=== PATIENT | female | born 1955 | race Caucasian/White ===

== ENCOUNTER 2025-04-17 08:39 | Outpatient (AMB) | payer MEDICARE, BC, SELFPAY ==
[2025-04-17 08:41] VITALS: BP 120/73; TEMP 36.3; BMI 26.7
--- NOTE | 2025-04-17 08:41 | A.PHYSOV_ITS ---
Vital Signs 04/17/25 08:41 Height 5 ft 3 in Weight 151 lb BMI 26.7 BP 120/73 Temp 97.3 F Intake Visit Reasons: Right Sacroiliac Joint Injection Intake Note: Patient is a 69 year old female in office today for Right Sacroiliac Injection Allergies amoxicillin Allergy (Unknown, Verified 04/17/25 08:40) Unknown aspirin Allergy (Unknown, Verified 04/17/25 08:40) Unknown codeine Allergy (Unknown, Verified 04/17/25 08:40) Unknown iodine Allergy (Unknown, Verified 04/17/25 08:40) Unknown nitrofurantoin (From Macrodantin) Allergy (Unknown, Verified 04/17/25 08:40) Unknown Penicillins Allergy (Unknown, Verified 04/17/25 08:40) Unknown promethazine Allergy (Unknown, Verified 04/17/25 08:40) Unknown Sulfa (Sulfonamide Antibiotics) Allergy (Unknown, Verified 04/17/25 08:40) Unknown [facility] Medical History (Updated 04/17/25 @ 09:06 by Jesus Rodriguez DO) Sacroiliac inflammation Surgical History (Updated 04/13/25 @ 16:11 by Kanchan Chen MA) History of shoulder surgery (Unknown) History of delivery (Unknown) Social History (Updated 04/13/25 @ 16:11 by Kanchan Chen MA) Alcohol intake: current Alcohol intake frequency: holidays/special occasions only Physical Exam Vital Signs: Last Vital Signs Temp 97.3 F 04/17/25 08:41 BP 120/73 04/17/25 08:41 BMI result Body Mass Index 26.7 Office Procedures AMB Sacroiliac Joint Injection AMB Sacroiliac Joint Injection Procedure Details: Preop diagnosis: SI joint mediated pain, sacroiliitis Postop diagnosis: The same After informed consent was obtained patient was brought into the procedure room and placed in prone position on the procedure table. Skin over lumbar sacral area was prepped and draped in the usual sterile manner. The inferior portion of the right sacroiliac joint was visualized utilizing fluoroscopy. 3.5 in 22 gauge spinal needle was introduced percutaneously and advanced into the joint. Needle placement was verified utilizing 0.5 cc of Omnipaque contrast solution. 2.5 cc of therapeutic solution containing 40 mg of triamcinolone and 2% lidocaine was injected after negative aspiration for blood. The C-arm was obliqued about 30? in the contralateral direction an area just medial the proximal portion of the sacroiliac joint was visualized. 3.5 in 22 gauge spinal needle was introduced percutaneously and advanced to enter the area. Once in place, needle placement was identified utilizing 1 cc of Omnipaque contrast solution. Total volume of 2.5 cc containing 40 mg of triamcinolone and 2% lidocaine was injected to block the lateral branches at the sacroiliac ligament. Radiation exposure was documented in the chart. Sacroiliac Joint Injections [id number] - use with FL Gd order: Right All charges added?: Procedure code (CPT) selection complete Office Meds Kenalog 40 mg/mL suspension for injection Performing Provider: Jesus Rodriguez DO Performing Location: [facility] Administered by: Jesus Rodriguez DO on 04/17/25 08:43 Dose Route Admin Location Dispensed Lot Number Expiration Date [facility] [employer] 80 mg intra-articular 2 mL [id number] [facility] Total Dispensed Waste 2 mL 0 % lidocaine (PF) 20 mg/mL (2 %) injection solution Performing Provider: Jesus Rodriguez DO Performing Location: [facility] Administered by: Jesus Rodriguez DO on 04/17/25 08:43 Dose Route Admin Location Dispensed Lot Number Expiration Date [facility] [employer] 120 mg intra-articular 10 mL [id number] [facility] Total Dispensed Waste 10 mL 40 % Omnipaque 300 300 mg iodine/mL intravenous solution Performing Provider: Jesus Rodriguez DO Performing Location: [facility] Administered by: Jesus Rodriguez DO on 04/17/25 08:43 Dose Route Admin Location Dispensed Lot Number Expiration Date [facility] Community [employer]anner 3 mL intra-articular 10 mL [id number] [employer] Total Dispensed Waste 10 mL 70 % Assessment & Plan Assessment & Plan (1) Sacroiliac dysfunction: Comment: Right SI joint injection was done, postprocedural course was complicated by transient leg numbness which improved by the time patient left the office. Code(s): M53.3 - Sacrococcygeal disorders, not elsewhere classified Category: Medical (2) Sacroiliac inflammation: Code(s): M46.1 - Sacroiliitis, not elsewhere classified Category: Medical Plan Right SI joint injection was completed Orders: Orders FL Guided Sacroiliac Jt Inj RT Today M46.1 - Sacroiliitis, not elsewhere classified, M53.3 - Sacrococcygeal disorders, not elsewhere classified AMB Sacroiliac Joint Injection Today M46.1 - Sacroiliitis, not elsewhere classified, M53.3 - Sacrococcygeal disorders, not elsewhere classified Coding Level of Care Code Procedure Only Diagnoses Sacroiliac dysfunction M53.3 Sacroiliac inflammation M46.1 CPT Codes AMB Sacroiliac Joint Injection - Hip intraarticular Injection - : Right ([id number])
--- OUTSIDE RECORDS SUMMARY | 2025-04-17 08:54 | XMS_ITS | Encounter Summary ---
Author Organization [facility] Address [address] [place] [id number] Phone Care Team Providers Care Access Services Assistant Name Role Phone Unknown, Unknown Primary Care Provider Lakhwinder Harrison MD Primary Care Provider [phone] Encounter Details Date Type Department Care Team (Late st Contact Info) Description 05/10/2018 Procedure Pass [facility] Endoscopy Admitting Dept Virtual Department [address] [place] [address] Social History Tobacco Use Types Packs/Day Years Used Date Smoking Tobacco: Never Smokeless Tobacco: Never Alcohol Use Standard Drinks/Week Comments Yes 0 (1 standard drink = 0.6 oz pur e alcohol) 1-3 drinks per week Comments Unknown Sex and Gender Information Value Date Recorded Sex Assigned at Not on file Legal Sex Female 9:27 AM EDT Gender Identity Not on file Sexual Orientation Not on file documented as of this encounter Plan of Treatment Not on file documented as of this encounter Visit Diagnoses Not on filedocumented in this encounter Care Teams Access Services Assistant Relationship Specialty Start Date End Date Unknown, Unknown, PCP - General 05/15/18 09/17/22 Lakhwinder Rodriguez MD [address] [place] [address] PCP - General Family Medicine 09/18/22 documented as of this encounter Additional Source Comments The information contained in this document represents components of the legal health record. It is not the complete legal health record.[facility]
--- OUTSIDE RECORDS SUMMARY | 2025-04-17 08:54 | XMS_ITS | Clinical Summary ---
Author Organization [facility] Address [address] [place] [address] Care Team Providers Care Grey Stock Recorder Name Role Phone Joaquín Galloway MD Primary Care Provider [phone] Allergies Active Allergy Reactions Criticality Noted Date Comments Betadine(With Soap) 02/15/2021 Nitrofurantoin Monohyd/M-Cryst 02/15/2021 Nsaids (Non-Steroidal Anti-Inflammatory Drug) Other (see comments) 05/16/2023 Bruises easily Opioids-Meperidine And Related 06/17/2024 Penicillins Hives,Rash High 05/10/2018 Swelling difficulty breathing Sob, rash Sulfa (Sulfonamide Antibiotics) Dermatitis,Other (see comments),Rash,Unkn own Medium 05/10/2018 Skin peeling Medications gabapentin (NEURONTIN) 400 mg capsule Take 1,200 mg by mouth nightly. 05/29/2024 Active olmesartan medoxomil (OLMESARTAN ORAL) Take 10 mg by mouth once. 05/29/2024 Active rosuvastatin calcium (ROSUVASTATIN ORAL) Take 10 mg by mouth in the morning. 05/29/2024 Active SUMAtriptan (IMITREX) 100 mg tablet Take 1 tablet by mouth See admin instructions. PRN 06/04/2003 Active estradioL (ESTRACE) 0.01 % (0.1 mg/gram) vaginal cream Insert 2 g into the vagina 2 (two) times a week. 05/26/2024 Active buPROPion XL (WELLBUTRIN XL) 150 mg 24 hr tablet Take 150 mg by mouth in the morning and 150 mg before bedtime. 11/03/1999 Active bisoprolol/hydr ochlorothiazide (ZIAC ORAL) 11/02/1994 Active ALPRAZolam (XANAX) 0.5 mg tablet Take 0.5 mg by mouth daily as needed. Active propranoloL (INDERAL) 10 mg tablet Take 10 mg by mouth in the morning and 10 mg before bedtime. PRN. Active fluconazole (DIFLUCAN) 150 mg tablet Take 150 mg by mouth in the morning. PRN. 01/08/2024 Active acetaminophen (Tylenol Extra Strength) 500 mg tablet Take 2 tablets (1,000 mg total) by mouth every 6 (six) hours as needed for mild pain (1-3). 30 tablet 12/11/2024 Active oxyCODONE (ROXICODONE) 5 mg immediate release tablet Take 1 tablet (5 mg total) by mouth every 4 (four) hours as needed for moderate pain (4-7) for up to 10 doses. Max Daily Amount: 30 mg 10 tablet 12/11/2024 Active Active Problems Problem Noted Date Diagnosed Date OLEKSANDR (stress urinary incontinence, female) 2024 Encounters Date Type Department Care Team Description 01/22/2025 9:45 AM EDT Follow-Up [facility] Department of Obstetrics and Gynecology [address] [place] [id number] Iliana Tolentino APRN Postoperative follow-up (Primary Dx) from Last 3 Months Social History Tobacco Use Types Packs/Day Years Used Date Smoking Tobacco: Never Smokeless Tobacco: Never Tobacco Cessation:Counseling Given: Not Answered Alcohol Use Standard Drinks/Week Comments Yes 0 (1 standard drink = 0.6 oz pur e alcohol) occas Comments No Sex and Gender Information Value Date Recorded Sex Assigned at Not on file Legal Sex Female 12:39 AM EST Gender Identity Not on file Sexual Orientation Not on file Last Filed Vital Signs Vital Sign Reading Time Taken Comments Blood Pressure 117/58 01/22/2025 10:17 AM EDT Pulse 63 01/22/2025 10:17 AM EDT Temperature 36.4 C (97.6 F) 12/26/2024 12:02 PM EDT Respiratory Rate 16 12/26/2024 12:0 2 PM EDT Oxygen Saturation 98% 12/11/2024 10: 15 AM EDT Inhaled Oxygen Concentration - - Weight 69.4 kg (152 lb 14.4 oz) 025 10:17 AM EDT Height 162.6 cm (5' 4.02 ) 01/22/2025 1 0:17 AM EDT Body Mass Index 26.23 01/22/2025 10:17 AM EDT Plan of Treatment Health Maintenance Due Date Last Done Comments Bone Density Screening 1955 Breast Cancer Screening 1955 CT Colonography 1955 FIT-DNA (Cologuard) 1955 FIT 1955 FOBT 1955 Flex Sigmoidoscopy - 5y 1955 HIV Screening 1955 Medicare Annual Wellness (AWV) 1955 Hepatitis C Screening 1973 Pneumococcal Vaccine, 50+ Years (2 of 2 - PCV) 11/05/2021 11/05/2020 COVID-19 Vaccine (5 - season) 2025 12/12/2021, 03/29/2021, 08/21/2020, Additional history exists Influenza Vaccine (#1) 2025 , 01/25/2021, 06/05/2017 DTaP,Tdap,and Td Vaccines (2 - Tdap) 10/02/2028 10/02/2018 Colonoscopy 09/18/2032 09/18/2022 Colorectal Cancer Screening 09/18/2032 Zoster Vaccines Completed 10/15/2020, 06/25/2020 HPV Vaccines Aged Out No longer eligi ble based on patient's age to complete this topic Hepatitis A Vaccines Aged Out No long er eligible based on patient's age to complete this topic Meningococcal Vaccine Aged Out No brent meng eligible based on patient's age to complete this topic Medical Devices Implanted Type Area Improvement Advisor Device Identifier Shelf Expiration Date Model / Serial / Lot Tvt Exact Retropubic System - [id number] Implanted:Qty: 1 on 12/11/2024 by Willy Silva MD at [facility] Surgical Implants - Men & Women's Pelvic Health N/A: Vagina Gynecare, div of [employer], Meet & Meet 06/03/2025 TVTRL / / [id number] Insurance MEDICARE PART A & B [facility] - OUT OF STATE Care Teams Grey Stock Recorder Relationship Specialty Start Date End Date Joaquín Galloway MD [address] [facility] [address] [place] [phone] PCP - General Family Medicine 12/11/24
--- OUTSIDE RECORDS SUMMARY | 2025-04-17 08:54 | XMS_ITS | Clinical Summary ---
Author Organization [facility] Address [address] [place] [address] Care Team Providers Care Ramp Flight Attendant Name Role Phone Unknown, Primary Care Provider Unavailabl e Social History Tobacco Use Types Packs/Day Years Used Date Smoking Tobacco: Never Assessed Sex and Gender Information Value Date Recorded Sex Assigned at Not on file Gender Identity Not on file Sexual Orientation Not on file Job Start Date Occupation Industry Not on file Not on file Not on file Plan of Treatment Health Maintenance Due Date Last Done Comments Hepatitis C Screening 1955 COVID-19 Vaccine (#1) 1955 Depression Screening 1967 Preventative Health Evaluation 1973 Colon Cancer Screening (Colonoscopy) 2000 Breast Cancer Screening (Mammogram) 2005 Fall Risk Assessment 2020 Osteoporosis Screening (DEXA Scan) 2020 Pneumococcal Vaccine (1 of 1 - PCV) 2020 Influenza Vaccine (#1) 2025 DTap / Tdap / Td (2 - Tdap) 10/02/2028 10/02/2018 RSV Adult > 60+ Yrs or (1 - 1-dose 75+ series) 2030 Shingrix-Zoster Vaccine Completed 10/16/19 21, 06/25/2020 Hepatitis B Vaccines Aged Out No long er eligible based on patient's age to complete this topic RSV Ped < 20 months Aged Out No longe r eligible based on patient's age to complete this topic Care Teams Ramp Flight Attendant Relationship Specialty Start Date End Date Unknown, PCP - General 12/27/23
--- OUTSIDE RECORDS SUMMARY | 2025-04-17 08:54 | XMS_ITS | Encounter Summary ---
Author Organization [facility] Address [address] [address] Phone Care Team Providers Care Supervisor Vacuum Metalizing Name Role Phone Lakhwinder Rodriguez MD Primary Care Provider [phone] Encounter Details Date Type Department Care Team (Late st Contact Info) Description 09/18/2022 Procedure Pass [facility] Endoscopy Admitting Dept Virtual Department [address] [place] [address] Social History Tobacco Use Types Packs/Day Years Used Date Smoking Tobacco: Never Smokeless Tobacco: Never Alcohol Use Standard Drinks/Week Comments Yes 1 (1 standard drink = 0.6 oz pur e alcohol) 1-2 per week Comments No Sex and Gender Information Value Date Recorded Sex Assigned at Not on file Legal Sex Female 9:27 AM EDT Gender Identity Not on file Sexual Orientation Not on file documented as of this encounter Plan of Treatment Not on file documented as of this encounter Visit Diagnoses Not on filedocumented in this encounter Care Teams Supervisor Vacuum Metalizing Relationship Specialty Start Date End Date Lakhwinder Rodriguez MD [address] [place] [address] [address] [place] [address] PCP - General Family Medicine 09/18/22 documented as of this encounter Additional Source Comments The information contained in this document represents components of the legal health record. It is not the complete legal health record.[facility]
--- OUTSIDE RECORDS SUMMARY | 2025-04-17 08:54 | XMS_ITS | Clinical Summary ---
Author Organization [facility] Address [address] [place] [address] Care Team Providers Care Stick Welder Name Role Phone Queenie Sanders MD Primary Care Pr ovider Allergies Active Allergy Reactions Criticality Noted Date Comments Amoxicillin 05/31/2024 Nitrofurantoin Unknown 03/27/2022 Nsaids (Non-Steroidal Anti-I nflammatory Drug) 07/18/2021 Penicillins 07/18/2021 Povidone-Iodine Unknown 07/18/2021 Promethazine Unknown 07/18/2021 Sulfa (Sulfonamide Antibiotics) Unknown 03/05 Medications atorvastatin (LIPITOR) 10 mg tablet Take 1 tablet (10 mg total) by mouth 1 (one) time each day. 2 Active bisoprolol-hydroCHL OROthiazide (ZIAC) 5-6.25 mg per tablet Take 1 tablet by mouth 1 (one) time each day. 2 Active buPROPion XL (WELLBUTRIN XL) 300 mg 24 hr tablet Take 1 tablet (300 mg total) by mouth 1 (one) time each day in the morning. Active ondansetron ODT (ZOFRAN-ODT) 4 mg disintegrating tablet Take 1 tablet (4 mg total) by mouth every 8 (eight) hours if needed. 2 Active famotidine (PEPCID) 20 mg tablet Take 1 tablet (20 mg total) by mouth 2 (two) times a day. 2 Active gabapentin (NEURONTIN) 400 mg capsule Take 3 capsules (1,200 mg total) by mouth 1 (one) time each day. Take 3 capsules at bedtime 2 Active SUMAtriptan (IMITREX) 25 mg tablet Sig: May repeat dose once after 2 hours, if needed. 2 Active propranoloL (INDERAL) 10 mg tablet Take 1 tablet (10 mg total) by mouth 1 (one) time each day if needed. For PAC 2 Active Active Problems Problem Noted Date Diagnosed Date Arrhythmia 11/17/2021 Degenerative disc disease, cervical 07/18/2021 Degenerative disc disease, lumbar 07/18/2021 Dyslipidemia 07/18/2021 Major depressive disorder in partial remission ([facility] V24) 07/18/2021 Migraine without aura and wi thout status migrainosus, not intractable 07/18/2021 PAC (premature atrial contraction) 07/18/2021 Primary hypertension 07/18/2021 Von Willebrand disease ([facility] V24, [facility] V28 ) 07/18/2021 Immunizations Immunization Administration Dates Next Due DTaP (Infanrix) 6wks to less than 7yo 10/02/2018 Influenza, Unspecified 01/25/2022,01/25/2021 Moderna SARS-CoV-2 COVID-19, mRNA, LNP-S, preservative free 12/12/2021,03/29/2021,08/21/2020,08/03 Pneumococcal polysaccharide 23 valent (Pneumovax 23) 2yo and older 11/05/2020 Zoster recombinant (Shingrix ) 19yo and older 10/15/2020,06/25/2020 Surgical History Surgery Date Site/Laterality Comments OTHER SURGICAL HISTORY Right PROCEDURE: ARTHROSCOPY SHOULDER SURGI SECTION 1987 PROCEDURE: [place] DELIVERY ONLY COLONOSCOPY 07/2017 PROCEDURE: HISTORICAL COLONOSCOPY Medical History Medical History Date Comments Essential hypertension DX:Essent ial hypertension Depressive disorder DX:Depressiv e disorder Migraine DX:Migraine Von Willebrand disease ([facility] V24, [facility] V28) DX:Von Willebrand disease (H CC) Neuropathy DX:Neuropathy; C OMMENT: Left hand Hyperlipidemia DX:Hyperlipidemi a Family History Medical History Relation Name Comments CABG Father Parkinson's Disease Father Breast cancer Mother Relation Name Status Comments Brother 1 Alive Brother 2 Alive Daughter Alive Father Mother Son 1 Alive Son 2 Alive Social History Tobacco Use Types Packs/Day Years Used Date Smoking Tobacco: Never Smokeless Tobacco: Never Alcohol Use Standard Drinks/Week Comments Yes 2 (1 standard drink = 0.6 oz pur e alcohol) Comments Unknown Sex and Gender Information Value Date Recorded Sex Assigned at Not on file Legal Sex Female 11:59 PM EST Gender Identity Not on file Sexual Orientation Not on file Obstetrics History Last Filed Vital Signs Vital Sign Reading Time Taken Comments Blood Pressure 90/50 01/25/2022 2:31 PM EDT Pulse 59 03/31/2022 2:33 PM EDT Temperature - - Respiratory Rate - - Oxygen Saturation - - Inhaled Oxygen Concentration - - Weight 67.1 kg (148 lb) 03/31/2022 2:33 PM EDT Height 162.6 cm (5' 4 ) 03/31/2022 2:33 PM EDT Body Mass Index 25.4 03/31/2022 2:33 PM EDT Plan of Treatment Health Maintenance Due Date Last Done Comments Breast Cancer Screening 1955 Colorectal Cancer Screening: Colonoscopy 1955 Pneumococcal Vaccine: 50+ Years (2 of 2 - PCV) 11/05/2021 11/05/2020 Falls Risk Assessment 05/13/2022 Osteoporosis Screening (Bone Density Screening) 05/13/2022 Social Influencers of Health Screening 05/13/2022 Hypertension/CHF/CAD Annual BMP Blood Test 03/31/2023 03/31/2022 Depression Screening 06/04/2024 COVID-19 Vaccine ( season) 2025 12/12/2021, 03/29/2021, 08/21/2020, Additional history exists Influenza Vaccine (#1) 2025 01/25/2022, 2020 Cholesterol Screening (Lipid Panel) 01/25/2027 01/25/2022 DTaP,Tdap,and Td Vaccines (2 - Tdap) 10/02/2028 10/02/2018 RSV Immunization Adult Patients (1 - 1-dose 75+ series) 2030 Zoster Vaccines Completed 10/15/2020, 06/25/2020 Hepatitis C Screening Completed 01/25/2022 HIB Vaccines Aged Out No longer eligi ble based on patient's age to complete this topic HPV Vaccines Aged Out No longer eligi ble based on patient's age to complete this topic Hepatitis A Vaccines Aged Out No long er eligible based on patient's age to complete this topic Hepatitis B Vaccines Aged Out No long er eligible based on patient's age to complete this topic IPV Vaccines Aged Out No longer eligi ble based on patient's age to complete this topic MMR Vaccines Aged Out No longer eligi ble based on patient's age to complete this topic Meningococcal ACWY Vaccine Aged Out N o longer eligible based on patient's age to complete this topic Meningococcal B Vaccine Aged Out No l onger eligible based on patient's age to complete this topic RSV Immunization Patients Under 20 months Aged Out No longer eligible based on patient's age to complete this topic Varicella Vaccines Aged Out No longer eligible based on patient's age to complete this topic Procedures Procedure Name Priority Date/Time Associated Diagnosis Comments ANNUAL BMP BLOOD TEST Routine 03/31/2022 HEPATITIS C SCREENING Routine 01/25/2022 LIPID PANEL Routine 01/25/2022 from Last 3 Months or Most Recently Relevant to Health Maintenance Results * Annual BMP Blood Test (03/31/2022) Pathologist [facility] Annual BMP Blood Test abstracted [facility] Provider HEALTH MAINTENANCE Final Result * Hepatitis C Screening (01/25/2022) Pathologist [facility] Hepatitis C Screening abstracted [facility] Provider HEALTH MAINTENANCE Final Result * (ABNORMAL) Lipid panel (01/25/2022) [facility] LDL/HDL Ratio 3 0 - 4 Triglycerides 149 0 - 150 mg/dL Cholesterol 209(A) 0 - 200 mg/dL HDL 69 >=40 mg/dL LDL Cholesterol 111(A) 0 - 100 mg/dL Blood Venous blood specimen / Unknown [facility] Provider LAB BLOOD ORDERABLES Lindsay l Result from Last 3 Months or Most Recently Relevant to Health Maintenance Care Teams Stick Welder Relationship Specialty Start Date End Date Queenie Sanders MD [address] [place] [address] PCP - General Internal Medicine 11/25/21
--- OUTSIDE RECORDS SUMMARY | 2025-04-17 08:55 | XMS_ITS | Clinical Summary ---
Author Organization [facility] Address [address] [place] [address] Care Team Providers Care Monotyper Name Role Phone Maribel Kelley NP Primary Care Provider Allergies Active Allergy Reactions Criticality Noted Date Comments Betadine(With Soap) 02/15/2021 Nitrofurantoin Monohyd/M-Cryst 02/15 Nsaids (Non-Steroidal Anti-I nflammatory Drug) 02/15/2021 Penicillin 02/15/2021 Promethazine 02/15/2021 Sulfa (Sulfonamide Antibiotics) 02/02 Medications No known medications Social History Tobacco Use Types Packs/Day Years Used Date Smoking Tobacco: Never Assessed Comments Unknown Sex and Gender Information Value Date Recorded Sex Assigned at Not on file Legal Sex Female 9:52 AM EDT Gender Identity Not on file Sexual Orientation Not on file Last Filed Vital Signs Vital Sign Reading Time Taken Comments Blood Pressure 126/86 02/15/2021 12:23 PM EDT Pulse 68 02/15/2021 12:23 PM EDT Temperature 36.7 C (98 F) 02/15/2021 9:57 AM EDT Respiratory Rate 18 02/15/2021 12:23 PM EDT Oxygen Saturation 100% 02/15/2021 12:23 PM EDT Inhaled Oxygen Concentration - - Weight 66.2 kg (146 lb) 02/15/2021 9:57 AM EDT Height - - Body Mass Index - - Plan of Treatment Not on file Insurance MEDICARE PART A AND B [employer] Care Teams Monotyper Relationship Specialty Start Date End Date Maribel Kelley NP PCP - General Nurse Practitioner 02/15/21
--- OUTSIDE RECORDS SUMMARY | 2025-04-17 08:55 | XMS_ITS | Encounter Summary ---
Author Organization [facility]ly [facility] Address [address] [place] [address] Care Team Providers Care Stock Replenisher Name Role Phone Lakhwinder Rodriguez MD Primary Care Provider [phone] Encounter Details Date Type Department Care Team (Late st Contact Info) Description 10/16/2023 Scanned Document [facility] [place]: Oncology and Hematology [address] [place] [id number] Provider, MD Arleen [address] [place] [address] Social History Tobacco Use Types Packs/Day Years Used Date Smoking Tobacco: Never Smokeless Tobacco: Never Comments Unknown Sex and Gender Information Value Date Recorded Sex Assigned at Female 10/23/2023 3:10 PM EDT Legal Sex Female 2:33 PM EDT Gender Identity Not on file Sexual Orientation Choose not to disclose 2023 3:10 PM EDT documented as of this encounter Plan of Treatment Not on file documented as of this encounter Visit Diagnoses Not on filedocumented in this encounter Care Teams Stock Replenisher Relationship Specialty Start Date End Date Lakhwinder Rodriguez MD [address] [place] [id number] PCP - General Family Medicine 05/16/23 documented as of this encounter
--- OUTSIDE RECORDS SUMMARY | 2025-04-17 08:55 | XMS_ITS | Patient Health Record ---
Author Organization [facility] Billing Info Address [address] [place], [place] [address] [address] Care Team Providers Care Manuscript Reader Name Role Phone SOCRATES BUSBY [phone] Allergies Allergen (clinical drug ingredient) Drug/Non Drug Allergy documented on EMR Reaction Allergy Type Onset Date Status povidone-iodine Betadine Unknown Drug Allergy A ctive nitrofurantoin Macrodantin rash/hives Drug Allergy Active promethazine Phenergan Unknown Drug Allergy Acti ve Sulfa rash/hives Drug Allergy Active Penicillin rash/hives Drug Allergy Activ e Reason For Referral No Information Medications Medication SIG (Take, Route, Frequency, Duration) Notes Start Date End Date Status BuPROPion HCl ER (XL) 300 MG 1 tablet in the morning Orally Once a day Active Ziac 2.5-6.25 MG 1 tablet Orally Once a day Active Atorvastatin Calcium 10 MG 1 tablet Oral ly Once a day Active Gabapentin 800 MG 1 tablet Orally Daily Active Xanax 0.5 MG 1 tablet Orally PRN Active Social History Tobacco Use: Social History Observation Description Date Details (start date - stop date) Never Smoker NA - NA Tobacco Status: Question Answer Notes Patient is a never smoker Problems Problem Type SNOMED Code ICD Code Onset Dates Problem Status W/U Status Risk Notes Problem 81287215 Bloated abdomen (R14.0) Active confirmed Problem 493212090 Hx of colonic polyp (Z86.010) Active confirmed Plan Of Treatment No Information Insurance Providers Payer Name Payer Address Payer Phone Subscriber Number Group Number Insured Name Patient Relationship to Insured Coverage Start Date Coverage End Date [place] PART B [address] [place], [place] [id number] [phone] [id number] david howe Self - patient is the insured Medical (General) History Medical History History ICD Code 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
--- OUTSIDE RECORDS SUMMARY | 2025-04-17 08:55 | XMS_ITS | Clinical Summary ---
Author Organization [facility] Address [address] [address] Phone Care Team Providers Care Histologist Technologist Name Role Phone Lakhwinder Rodriguez MD Primary Care Provider [phone] Allergies Active Allergy Reactions Criticality Noted Date Comments Ampicillin High 05/10/2018 Sob, rash Aspirin 09/14/2022 Excessive bruising and bleeding Povidone-Iodine High 05/10/2018 Skin peeling Codeine 09/14/2022 Ibuprofen 09/14/2022 Iodine 09/14/2022 Skin peeling Nitrofurantoin Macrocrystal Medium 05/10/20 18 Rash puritis Nsaids (Non-Steroidal Anti-Inflammatory Drug) High 05/10/2018 bleed Penicillins 09/14/2022 Swelling difficulty breathing Promethazine High 05/10/2018 Sasha oral twitch Sulfa (Sulfonamide Antibiotics) Medium 05/10/2018 Medications propranolol (INDERAL) 10 MG immediate release tablet Take 10 mg by mouth 3 (three) times a day. Active ALPRAZolam (XANAX) 0.5 MG tablet Take 0.5 mg by mouth nightly as needed for sleep. Active bisoprolol-hydr oCHLOROthiazide (ZIAC) 5-6.25 mg per tablet Take 1 tablet by mouth daily. 07/22/2022 Active HYDROcodone-jose taminophen (NORCO 10-325) 10-325 mg per tablet Weinert 10 mg-325 mg tablet Take 1 tablet every 8 hours by oral route. Active rosuvastatin (CRESTOR) 5 MG tablet take 1 tablet by mouth everyday at bedtime 09/05/2022 Active buPROPion (WELLBUTRIN XL) 150 MG ER 24 hr tablet Take 150 mg by mouth every morning. 07/19/2022 Active gabapentin (NEURONTIN) 400 MG capsule Take 1,200 mg by mouth nightly at bedtime. Active cholecalciferol (VITAMIN D3) 25 MCG (1,000 unit) tablet Take 1,000 Units by mouth daily. Active cetirizine (ZYRTEC) 10 MG tablet Take 10 mg by mouth daily. Active azelastine (ASTEPRO) 205.5 mcg (0.15 %) Ramsay 1-2 sprays by Each Nare route 2 (two) times a day. Active Social History Tobacco Use Types Packs/Day Years Used Date Smoking Tobacco: Never Smokeless Tobacco: Never Alcohol Use Standard Drinks/Week Comments Yes 1 (1 standard drink = 0.6 oz pur e alcohol) 1-2 per week Education Answer Date Recorded Are you interested in more education? Not on rica e 09/29/2022 Are you concerned about learning? Not on file 09/29/2022 No 09/29/2022 No 09/29/2022 Digital Access Answer Date Recorded No 10/28/2022 No 10/28/2022 No 10/28/2022 Reliable internet access at home? Not on file 10/28/2022 Device with a working camera? Not on file Comments No Sex and Gender Information Value Date Recorded Sex Assigned at Not on file Legal Sex Female 9:27 AM EDT Gender Identity Not on file Sexual Orientation Not on file Last Filed Vital Signs Vital Sign Reading Time Taken Comments Blood Pressure 90/50 09/18/2022 2:53 PM EDT Pulse 56 09/18/2022 2:53 PM EDT Temperature 36 C (96.8 F) 09/18/2022 1:25 PM EDT Respiratory Rate 14 09/18/2022 2:53 PM EDT Oxygen Saturation 98% 09/18/2022 2:53 PM EDT Inhaled Oxygen Concentration - - Weight 68 kg (150 lb) 09/14/2022 1:17 PM EDT Height 162.6 cm (5' 4 ) 09/14/2022 1:17 PM EDT Body Mass Index 25.75 09/14/2022 1:17 PM EDT Plan of Treatment Health Maintenance Due Date Last Done Comments Adult Td,Tdap Booster 1955 LIPID PANEL 1955 POTASSIUM LEVEL 1955 DEPRESSION SCREENING 1967 HEPATITIS C SCREENING 1973 SCREENING FOR DIABETES 1990 MAMMOGRAM 1995 COLOGUARD 2000 FIT TEST 2000 FOBT 2000 SIGMOIDOSCOPY 2000 VIRTUAL COLONOSCOPY 2000 PNEUMOCOCCAL VACCINES (50+ years) (1 of 1 - PCV) 2005 OSTEOPOROSIS SCREENING INITIAL (ONE-TIME) 2020 INFLUENZA VACCINE (#1) 2025 01/25/2022 COVID-19 VACCINE ( season) 2025 03/07/2022, 12/12/2021, 03/29/2021, Additional history exists RSV VACCINE (1 - 1-dose 75+ series) 2030 COLONOSCOPY 09/18/2032 09/18/2022, 05/10/2018 COLORECTAL CANCER SCREENING 09/18/2032 ZOSTER VACCINES Completed 10/15/2020, 06/25/2020 SMOKING STATUS SCREENING (Once After 26 Yrs) Completed 09/18/2022 HEPATITIS A VACCINES Aged Out No long er eligible based on patient's age to complete this topic HIB VACCINES Aged Out No longer eligi ble based on patient's age to complete this topic IPV VACCINES Aged Out No longer eligi ble based on patient's age to complete this topic MENINGOCOCCAL VACCINES (ACWY) Aged Out No longer eligible based on patient's age to complete this topic MENINGOCOCCAL VACCINES (B) Aged Out N o longer eligible based on patient's age to complete this topic Medical Devices Not on file Procedures Procedure Name Priority Date/Time Associated Diagnosis Comments ENDOSCOPY, COLON 09/18/2022 2:13 PM EDT from Last 3 Months or Most Recently Relevant to Health Maintenance Results * ENDOSCOPY, COLON (09/18/2022 2:13 PM EDT) Narrative Transcriptions Bethel Feliciano MD - 09/18/2022 2:13 PM EDT [facility] Patient Name: Brissa Hiral Attending MD:: BETHEL FELICIANO MD, Procedure Date: 09/18/2022 2:13 PM Date of : 1955 Age: 67 Admit Type: Outpatient Gender: Female Room: [place] [address] Referring MD: Lakhwinder Rodriguez Exam Type: Colonoscopy Indications: Surveillance: Personal history of adenomatous polyps,none on last colonoscopy > 5 years ago 05/10/2018, 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 Risks specifically discussed include but are not limited to medication reactions, missed lesions, bleeding, perforation, or the need for emergent surgery. Throughout the procedure, the patient's blood pressure, pulse, end-tidal CO2, and oxygensaturations were monitored continuously. The Olympus pediatric variable colonoscopePCF-[id number] #1 was introduced through the anus and advanced tothe cecum, identified by the appendiceal orifice, ileocecal valve and palpation. The colonoscopy was somewhat difficult due to a redundant colon. The patient tolerated the procedure fairly well. The quality of the bowel preparation was good. The ileocecal valve, appendiceal orifice, and rectumwere photographed. Complications: No immediate complications. Estimated blood loss:None. Findings: The perianal and digital rectal examinations were normal. Pertinent negatives include normalsphincter tone. A few small-mouthed diverticula were found in the sigmoid colon. Retroflexion in the right colon was performed. Non-bleeding hemorrhoids were found during retroflexion. The hemorrhoids were moderate. A single small angioectasia without bleeding wasfound in the transverse colon. Impression: - Diverticulosis in the sigmoid colon. - Non-bleeding hemorrhoids. - A single non-bleeding colonic angioectasia. - No specimens collected. Recommendation: - Repeat colonoscopy in 5 years for surveillance. BETHEL FELICIANO MD 09/18/2022 2:44:13 PM This report has been signed electronically. Number of Addenda: 0 Note Initiated On: 09/18/2022 2:13 PM Procedure Code(s): --- Professional --- G0105, Colorectal cancer screening; colonoscopy on individual at high risk --- Technical --- G0105, Colorectal cancer screening; colonoscopy on individual at high risk Diagnosis Code(s): --- Professional --- Z86.010, Personal history of colonic polyps K64.9, Unspecified hemorrhoids K55.20, Angiodysplasia of colon withouthemorrhage K57.30, Diverticulosis of large intestine without perforation or abscess without bleeding --- Technical --- Z86.010, Personal history of colonic polyps K64.9, Unspecified hemorrhoids K55.20, Angiodysplasia of colon withouthemorrhage K57.30, Diverticulosis of large intestine without perforation or abscess without bleeding CPT copyright 2021 [employer]. All rights reserved. The codes documented in this report are preliminary and upon house nurse reviewmay be revised to meet current compliance requirements. Procedure Date: 09/18/2022 2:13:[address] [place] [address] Lakhwinder Rodriguez MD GI PROCEDURE ORDERABLES F inal Result from Last 3 Months or Most Recently Relevant to Health Maintenance Insurance MEDICARE PART A & B [employer] - innovate | mentor | invest MEDEX SUPPLEMENT MEDICARE PART A & B [employer] - innovate | mentor | invest MEDEX SUPPLEMENT MEDICARE PART A & B MEDICARE PART A & B MEDICARE PART A & B [employer]UE [employer] MEDEX SUPPLEMENT MEDICARE PART A & B MEDICARE PART A & B [employer]UE [employer]OSS MEDEX SUPPLEMENT MEDICARE PART A & B [employer] - innovate | mentor | invest MEDEX SUPPLEMENT MEDICARE PART A & B BLUE [employer]OSS MEDEX SUPPLEMENT Care Teams Histologist Technologist Relationship Specialty Start Date End Date Lakhwinder Rodriguez MD [address] [place] [address] PCP - General Family Medicine 09/18/22 Additional Source Comments The information contained in this document represents components of the legal health record. It is not the complete legal health record.[facility]"
--- OUTSIDE RECORDS SUMMARY | 2025-04-17 08:55 | XMS_ITS | Encounter Summary ---
Author Organization [facility] Address [address] [place] [address] Care Team Providers Care Flat Sorter Processor Name Role Phone Lakhwinder Rodriguez MD Primary Care Provider Encounter Details Date Type Department Care Team (Late st Contact Info) Description 05/24/[address] [facility] [address] [address] Jaswinder Alvarado MD [address] [place] [id number] Social History Tobacco Use Types Packs/Day Years [...] on filedocumented in this encounter Care Teams Flat Sorter Processor Relationship Specialty Start Date End Date Lakhwinder Rodriguez MD [address] [facility] [address] [place] [address] PCP - General Family Medicine 05/16/23 documented as of this encounter
--- OUTSIDE RECORDS SUMMARY | 2025-04-17 08:55 | XMS_ITS | Clinical Summary ---
Author Organization [facility] Address [address] [place] [address] Care Team Providers Care Manager Basketball Name Role Phone Lakhwinder Rodriguez MD Primary Care Provider Allergies Active Allergy Reactions Criticality Noted Date Comments Nitrofurantoin Rash/Dermatitis Medium 05/10/2018 Rash puritis Swelling Nsaids Other (See Comments) 05/16/2023 Has bleeding disorder Sulfa Antibiotics Other (See Comments) Medium 05/10/20 18 Skin peeling Medications buPROPion (WELLBUTRIN XL) 150 MG 24 hr tablet 04/19/2023 Active gabapentin (NEURONTIN) 400 MG capsule TAKE 3 CAPSULES BY MOUTH EVERY DAY AT BEDTIME Active rosuvastatin (CRESTOR) 5 MG tablet TAKE 1 TABLET BY MOUTH EVERYDAY AT BEDTIME 02/26/2023 Active cetirizine (ZyrTEC) 10 MG tablet Take 1 tablet (10 mg total) by mouth daily. Active cholecalciferol (Vitamin D-[address]) 25 MCG (1000 UT) tablet Take 1 tablet (1,000 Units total) by mouth. Active olmesartan (BENICAR) 5 MG tablet Take 1 tablet (5 mg total) by mouth daily. 10/09/2023 Active bisoprolol-hydr oCHLOROthiazide (ZIAC) 5-6.25 MG per tablet 10/15/2023 Activ e Active Problems Problem Noted Date Diagnosed Date Von Willebrand disease 10/24/2023 Immunizations Immunization Administration Dates Next Due Covid-19 mRNA Primary Series Vaccine - Moderna 0.5 mL Full Dose 12/12/2021,03/29/2021,08/21/2020,2020 Family History Medical History Relation Name Comments Coronary artery disease Father Hyperlipidemia Father Parkinson's disease Father Diabetes type I Maternal Grandfather Hodgkin's lymphoma Maternal Grandmother Colon cancer Maternal Uncle Breast cancer Mother Relation Name Status Comments Father Maternal Grandfather Maternal Grandmother Maternal Uncle Mother Paternal Grandfather Paternal Grandmother Social History Tobacco Use Types Packs/Day Years Used Date Smoking Tobacco: Never Smokeless Tobacco: Never Tobacco Cessation:Counseling Given: Not Answered Comments Unknown Sex and Gender Information Value Date Recorded Sex Assigned at Female 10/23/2023 3:10 PM EDT Legal Sex Female 2:33 PM EDT Gender Identity Not on file Sexual Orientation Choose not to disclose 2023 3:10 PM EDT Last Filed Vital Signs Vital Sign Reading Time Taken Comments Blood Pressure 123/75 10/24/2023 12:54 PM EDT Pulse 64 10/24/2023 12:54 PM EDT Temperature 36.2 C (97.1 F) 10/24/2023 12:54 PM EDT Respiratory Rate 18 10/24/2023 12:54 PM EDT Oxygen Saturation 98% 10/24/2023 12:54 PM EDT Inhaled Oxygen Concentration - - Weight 69.2 kg (152 lb 9.6 oz) 10/24/2023 12:54 PM EDT Height 162.6 cm (5' 4 ) 10/24/2023 12:54 PM EDT Body Mass Index 26.19 10/24/2023 12:54 PM EDT Plan of Treatment Health Maintenance Due Date Last Done Comments Advance Care Planning 1955 Hepatitis C Virus Screening 1955 DTaP/Tdap/Td Vaccines (1 - Tdap) 1974 Mammogram 1995 Colonoscopy 2000 Pneumococcal Vaccines 50+ (1 of 1 - PCV) 2005 RSV Vaccine 50 years and older and Patients (1 - Risk 50-74 years 1-dose series) 2005 Zoster (Shingles) Vaccine (1 of 2) 2005 DXA Bone Density (Females,Ages 65 and older) 2020 Influenza Vaccine 01/02/2025 06/05/2017 COVID-19 Vaccine ( season) 2025 12/12/2021, 03/29/2021, 08/21/2020, Additional history exists Hepatitis B Vaccines Aged Out No long er eligible based on patient's age to complete this topic Insurance MEDICARE PART A & B [employer] MEDICARE PART A & B [employer] Care Teams Manager Basketball Relationship Specialty Start Date End Date Lakhwinder Rodriguez MD [address] [address] PCP - General Family Medicine 05/16/23
--- OUTSIDE RECORDS SUMMARY | 2025-04-17 08:55 | XMS_ITS | Encounter Summary ---
Author Organization [facility] Address [address] [place] [address] Care Team Providers Care Stone Layer Name Role Phone Lakhwinder Rodriguez MD Primary Care Provider [phone] Encounter Details Date Type Department Care Team (Late st Contact Info) Description 08/30/2023 Scanned Document [facility] Department of Physiatry [place] [address] [place] [address] Telma Barron MD [address] [place] [address] Social History Tobacco Use Types Packs/Day Years [...] on filedocumented in this encounter Care Teams Stone Layer Relationship Specialty Start Date End Date Lahkwinder Rodriguez MD [address] [facility] [address] [place] [address] PCP - General Family Medicine 05/16/23 documented as of this encounter
--- OUTSIDE RECORDS SUMMARY | 2025-04-17 08:55 | XMS_ITS | Encounter Summary ---
Author Organization [facility] Address [address] [place] [address] Care Team Providers Care Cuff Presser Name Role Phone Oumou Miguel MD Primary Care Provider + [phone] Lakhwinder Rodriguez MD Primary Care Provider + [phone] Encounter Details Date Type Department Care Team (Late st Contact Info) Description 12/07/2021 Scanned Document [facility] Geriatric[facility] [place] [address] [place] [phone] Oumou Miguel MD [address] [place] [address] Social History Tobacco Use Types Packs/Day Years [...] on filedocumented in this encounter Care Teams Cuff Presser Relationship Specialty Start Date End Date Oumou Miguel MD [address] [place], [place] [id number] PCP - General 05/15/23 Lakhwinder Rodriguez MD [address] [place] [address] PCP - General Family Medicine 05/16/23 documented as of this encounter
== END 2025-04-17 09:14 | disposition home or self-care (01) ==
PROVIDERS: Visit Provider Physical Medicine & Rehabilitation
DX: M53.3 Sacrococcygeal disorders, not elsewhere classified (principal); M46.1 Sacroiliitis, not elsewhere classified
CPT/HCPCS: 27096

== ENCOUNTER 2025-04-17 08:39 | Outpatient (REF) | payer MEDICARE, BC, SELFPAY | END 2025-04-17 08:40 | disposition home or self-care (01) | LOC: HO.HPHYSR 08:39 | PROVIDERS: Visit Provider Physical Medicine & Rehabilitation | DX: M46.1 Sacroiliitis, not elsewhere classified (principal); M53.3 Sacrococcygeal disorders, not elsewhere classified; R20.0 Anesthesia of skin | CPT/HCPCS: 27096; J2003; J3301; Q9967 ==

== ENCOUNTER 2025-05-06 08:34 | Outpatient (AMB) | payer MEDICARE, BC, SELFPAY ==
--- NOTE | 2025-05-06 08:45 | A.PHYSOV_ITS ---
Vital Signs 05/06/25 08:46 Height 5 ft 4 in Weight 152 lb BMI 26.1 Intake Visit Reasons: F/U after injection 04/17/2025 Intake Note: Patient is a 69 year old female in office today for a follow up after right sacroiliac joint injection 04/17/25 Allergies amoxicillin Allergy (Unknown, Verified 05/06/25 08:49) Unknown aspirin Allergy (Unknown, Verified 05/06/25 08:49) Unknown codeine Allergy (Unknown, Verified 05/06/25 08:49) Unknown iodine Allergy (Unknown, Verified 05/06/25 08:49) Unknown nitrofurantoin (From Macrodantin) Allergy (Unknown, Verified 05/06/25 08:49) Unknown Penicillins Allergy (Unknown, Verified 05/06/25 08:49) Unknown promethazine Allergy (Unknown, Verified 05/06/25 08:49) Unknown Sulfa (Sulfonamide Antibiotics) Allergy (Unknown, Verified 05/06/25 08:49) Unknown HPI Comments Details: History of Present Illness The patient is a 69 year old individual presenting for a follow-up appointment for persistent right-sided lower back pain. The patient is currently taking gabapentin 400 mg for this pain. The patient received a right sacroiliac joint injection on April 17, 2025, after which the pain is no longer constant, but it is triggered by driving for 3-4 hours or with significant bending and lifting, though it resolves quickly in the latter case. She reports pain radiating to the right hip. Past interventions for back pain have included SI joint injections and facet joint injections. The patient has not had a lumbar MRI in a while and did not have a herniated disc on prior imaging. 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 The patient has a history of Von Willebrand disease, which prohibits the use of anti-inflammatory medications. There is also a history of migraine headaches, managed with sumatriptan and propranolol. 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 The patient does not have a personal history of breast cancer but reports that the patient's mother from it before the age of 50. Pain Description - Location: The pain is located in the right lower back. - Onset and Timing: The pain is persistent but is no longer constant following a recent injection. - Exacerbating Factors: The pain is triggered by driving for three to four hours and by activities involving bending and lifting. - Relieving Factors: Pain that starts with bending and lifting goes away quickly. Results - Procedures: Right sacroiliac joint injection was performed on April 17, 2025. - Genetic Testing: Positive for CHECK2 mutation and negative for BRCA mutation. - Imaging: A previous MRI of the back did not show any herniated discs. [facility] Medical History (Updated 05/06/25 @ 09:04 by Jesus Rodriguez DO) Lumbar disc herniation Lumbar radiculitis Sacroiliac inflammation Surgical History Status post creation of urethral sling by suprapubic approach (Unknown) History of Mohs micrographic surgery for skin cancer (Unknown) History of shoulder surgery (Unknown) History of delivery (Unknown) Social History Household Members: None Alcohol intake: current Alcohol intake frequency: holidays/special occasions only Patient Tobacco Use Status: Never used Tobacco Current occupational status: retired Review of Systems Narrative Review of Systems - Musculoskeletal: Reports persistent right-sided lower back pain. - Neurological: Reports migraine headaches managed with medication. - Neurological: Reports loss of dexterity in the left upper extremity. - Neurological: Reports frontal headaches. - Hematologic: Reports history of Von Willebrand disease. - Genetic: Reports having a CHECK2 gene mutation. Patient denies any change in bowel bladder habits. She denies any fever or chills. Physical Exam Exam Exam: Physical Exam Patient appears to be in no acute distress, appropriately conversant oriented. Gait without antalgia. She was able to perform heel walk and toe walk. Dural tension signs were slightly positive for right lower extremity. Neurological examination was nonfocal. Tenderness with palpation over lumbar paraspinal muscles, right SI sulcus and lower lumbar spinous processes. Lumbar range of motion was preserved. Patient demonstrated no upper motor neuron signs. Vital Signs: BMI result Body Mass Index 26.1 Assessment & Plan Assessment & Plan (1) Sacroiliac dysfunction: Comment: Right SI joint injection was done, postprocedural course was complicated by transient leg numbness which improved by the time patient left the office. Code(s): M53.3 - Sacrococcygeal disorders, not elsewhere classified Category: Medical (2) Sacroiliac inflammation: Code(s): M46.1 - Sacroiliitis, not elsewhere classified Category: Medical (3) Lumbar radiculitis: Code(s): M54.16 - Radiculopathy, lumbar region Category: Medical (4) Lumbar disc herniation: Code(s): M51.26 - Other intervertebral disc displacement, lumbar region Category: Medical Plan Pain Management - Analgesia: The patient is currently taking gabapentin 400 mg for back pain. - Analgesia: A right sacroiliac joint injection was administered on April 17, resulting in the pain becoming less constant. - Activities of Daily Living: The pain interferes with the ability to drive for extended periods, specifically three to four hours. - Activities of Daily Living: Bending and lifting can also provoke the pain, but it resolves quickly. Plan Patient was informed and verbally consented to the use of an ambient scribe for clinic note documentation during this visit. 1. Chronic Right-Sided Lower Back Pain The patient presents for follow-up of persistent right-sided lower back pain, status post a right SI joint injection on April 17. While the injection has made the pain less constant, it is still provoked by prolonged driving and certain activities. Given the persistent symptoms and the extended time since the last imaging, further investigation is warranted. A request for an MRI of the lumbar spine will be placed to further evaluate the etiology of the pain. The patient will follow up after the MRI is completed to discuss the results and further treatment options. 2. Migraine Headaches The patient's migraine headaches are reportedly managed with sumatriptan and propranolol. The plan is to continue the current medication regimen. 3. Von Willebrand Disease The patient has a history of Von Willebrand disease, which is a contraindication for anti-inflammatory medications. Will continue to avoid NSAIDs in the management of pain. 4. Cancer Surveillance The patient has a CHECK2 gene mutation and undergoes annual breast MRI for cancer surveillance. The patient will continue with the recommended annual screening. Discussion Notes I discussed with the patient that despite the recent right SI joint injection, the patient continues to experience right-sided lower back pain, especially with prolonged driving. We agreed that further investigation is warranted since it has been a long time since the last imaging. I advised that an MRI of the lower back would be beneficial to re-evaluate the condition. The patient consented to this plan and agreed to have the MRI performed at [place]. I instructed the patient to call our office to arrange a follow-up appointment after hearing from the imaging department, with the appointment to occur after the holidays. Patient Instructions - An MRI of your lower back has been ordered to get a better look at what may be causing your pain. I have sent the request to the imaging department at [place]. - The imaging department will call you to schedule the MRI. - Once your MRI is scheduled, please call our office to set up a follow-up appointment to discuss the results. This will likely be after the holidays. - Continue taking your current medications, including gabapentin, as prescribed. - Do not take any anti-inflammatory medications like ibuprofen or naproxen due to your history of Von Willebrand disease. - Continue with your annual breast MRI for cancer screening as recommended by your other doctors. Orders: Orders MR lumbar spine wo con Today M46.1 - Sacroiliitis, not elsewhere classified, M51.26 - Other intervertebral disc displacement, lumbar region, M53.3 - Sacrococcygeal disorders, not elsewhere classified, M54.16 - Radiculopathy, lumbar region Coding Level of Care Code Est Pt Level 4 (93350) Complex visit Add On G2211 Diagnoses Sacroiliac dysfunction M53.3 Sacroiliac inflammation M46.1 Lumbar radiculitis M54.16 Lumbar disc herniation M51.26
[2025-05-06 08:46] VITALS: BMI 26.1
--- OUTSIDE RECORDS SUMMARY | 2025-05-06 08:47 | XMS_ITS | Encounter Summary ---
Author Organization [facility] Address [address] [place] [address] Phone Care Team Providers Care Lathe Operator Contact Lens Name Role Phone Unknown, Unknown Primary Care Provider Lakhwinder Harrison MD Primary Care Provider [phone] Encounter Details Date Type Department Care Team (Late st Contact Info) Description 05/10/2018 Procedure Pass [facility] Endoscopy Admitting Dept Virtual Department [address] [place] [address] Social History Tobacco Use Types Packs/Day Years [...] on filedocumented in this encounter Care Teams Lathe Operator Contact Lens Relationship Specialty Start Date End Date Unknown, Unknown, PCP - General 05/15/18 09/17/22 Lakhwinder Rodriguez MD [address] [place] [address] PCP - General Family Medicine 09/18/22 documented as of this encounter Additional Source Comments The information contained in this document represents components of the legal health record. It is not the complete legal health record.[facility]
--- OUTSIDE RECORDS SUMMARY | 2025-05-06 08:47 | XMS_ITS | Clinical Summary ---
Author Organization [facility] Address [address] [place] [address] Care Team Providers Care Medical Office Scheduler Name Role Phone Joaquín Galloway MD Primary Care Provider [phone] Allergies Active Allergy Reactions Criticality Noted Date [...] Date OLEKSANDR (stress urinary incontinence, female) 2024 Social History Tobacco Use Types Packs/Day Years [...] this topic Medical Devices Implanted Type Area Branding Machine Tender Device Identifier Shelf Expiration Date Model / Serial / Lot Tvt Exact Retropubic System - [id number] Implanted:Qty: 1 on 12/11/2024 by Willy Silva MD at [facility] Surgical Implants - Men & Women's Pelvic Health N/A: Vagina Gynecare, div of [employer], Meet & Meet 06/03/2025 TVTRL / / [id number] Insurance MEDICARE PART A & B [facility] - OUT OF STATE Care Teams Medical Office Scheduler Relationship Specialty Start Date End Date Joaquín Galloway MD [address] [id number] PCP - General Family Medicine 12/11/24
--- OUTSIDE RECORDS SUMMARY | 2025-05-06 08:47 | XMS_ITS | Clinical Summary ---
Author Organization [facility] Address [address] [place] [address] Care Team Providers Care Crossing Flagman Name Role Phone Unknown, Primary Care Provider [...] age to complete this topic Care Teams Crossing Flagman Relationship Specialty Start Date End Date Unknown, PCP - General 12/27/23
--- OUTSIDE RECORDS SUMMARY | 2025-05-06 08:47 | XMS_ITS | Clinical Summary ---
Author Organization [facility] Address [address] [place] [address] Care Team Providers Care Door Clamper Name Role Phone Queenie Sanders MD Primary [...] 07/18/2021 Major depressive disorder in partial remission ([facility] V24) 07/18/2021 Migraine without aura and wi thout status migrainosus, not intractable 07/18/2021 PAC (premature atrial contraction) 07/18/2021 Primary hypertension 07/18/2021 Von Willebrand disease ([facility] V24, [facility] V28 ) 07/18/2021 Immunizations Immunization Administration Dates Next Due DTaP (Infanrix) 6wks to less than 7yo 10/02/2018 Influenza, Unspecified 01/25/2022,01/25/2021 Moderna SARS-CoV-2 COVID-19, mRNA, LNP-S, preservative free 12/12/2021,03/29/2021,08/21/2020,08/03 Pneumococcal polysaccharide 23 valent (Pneumovax 23) 2yo and older 11/05/2020 Zoster recombinant (Shingrix ) 19yo and older 10/15/2020,06/25/2020 Surgical History Surgery Date Site/Laterality Comments OTHER SURGICAL HISTORY Right PROCEDURE: ARTHROSCOPY SHOULDER SURGI SECTION 1987 PROCEDURE: [place] DELIVERY ONLY COLONOSCOPY 07/2017 PROCEDURE: HISTORICAL COLONOSCOPY Medical History Medical History Date Comments Essential hypertension DX:Essent ial hypertension Depressive disorder DX:Depressiv e disorder Migraine DX:Migraine Von Willebrand disease ([facility] V24, [facility] V28) DX:Von Willebrand disease (H [facility]) Neuropathy [...] * Annual BMP Blood Test (03/31/2022) Pathologist [facility] Annual BMP Blood Test abstracted [facility] Provider HEALTH MAINTENANCE Final Result * Hepatitis C Screening (01/25/2022) Pathologist [facility] Hepatitis C Screening abstracted [facility] Provider HEALTH MAINTENANCE Final Result * (ABNORMAL) Lipid panel (01/25/2022) [facility] LDL/HDL Ratio 3 0 - 4 Triglycerides 149 0 - 150 mg/dL Cholesterol 209(A) 0 - 200 mg/dL HDL 69 >=40 mg/dL LDL Cholesterol 111(A) 0 - 100 mg/dL Blood Venous blood specimen / Unknown [facility] Provider LAB BLOOD ORDERABLES Lindsay l Result from Last 3 Months or Most Recently Relevant to Health Maintenance Care Teams Door Clamper Relationship Specialty Start Date End Date Queenie Sanders MD [address] [place] [address] PCP - General Internal Medicine 11/25/21
--- OUTSIDE RECORDS SUMMARY | 2025-05-06 08:47 | XMS_ITS | Encounter Summary ---
Author Organization [facility] Address [address] [address] Phone Care Team Providers Care Telephone Information Supervisor Name Role Phone Lakhwinder Rodriguez MD Primary Care Provider [phone] Encounter Details Date Type Department Care Team (Late st Contact Info) Description 09/18/2022 Procedure Pass [facility] Endoscopy Admitting Dept Virtual Department [address] [place] [address] Social History Tobacco Use Types Packs/Day Years [...] on filedocumented in this encounter Care Teams Telephone Information Supervisor Relationship Specialty Start Date End Date Lakhwinder Rodriguez MD [address] [place] [address] [address] [place] [address] PCP - General Family Medicine 09/18/22 documented as of this encounter Additional Source Comments The information contained in this document represents components of the legal health record. It is not the complete legal health record.[facility]
--- OUTSIDE RECORDS SUMMARY | 2025-05-06 08:48 | XMS_ITS | Encounter Summary ---
Author Organization [facility] Address [address] [place] [address] Care Team Providers Care Audograph Operator Name Role Phone Lakhwinder Rodriguez MD Primary Care Provider Encounter Details Date Type Department Care Team (Late st Contact Info) Description 10/16/2023 Scanned Document [facility] [place] [facility]: Oncology and Hematology [address] [place] [id number] Provider, MD Arleen [address] [place] [address] Social History Tobacco Use Types Packs/Day Years [...] on filedocumented in this encounter Care Teams Audograph Operator Relationship Specialty Start Date End Date Lakhwinder Rodriguez MD [address] [place] [address] PCP - General Family Medicine 05/16/23 documented as of this encounter
--- OUTSIDE RECORDS SUMMARY | 2025-05-06 08:48 | XMS_ITS | Clinical Summary ---
Author Organization [facility] Address [address] [address] Phone Care Team Providers Care Outbound Supervisor Name Role Phone Lakhwinder Rodriguez MD Primary Care Provider [phone] Allergies Active Allergy Reactions Criticality Noted Date [...] taminophen (NORCO 10-325) 10-325 mg per tablet [place] 10 mg-325 mg tablet Take 1 tablet [...] Active azelastine (ASTEPRO) 205.5 mcg (0.15 %) [place] 1-2 sprays by Each Nare route 2 [...] Feliciano MD - 09/18/2022 2:13 PM EDT [facility] Patient Name: Brissa Blackman Attending MD:: BETHEL FELICIANO MD, Procedure Date: 09/18/2022 2:13 PM Date of : 1955 Age: 67 Admit Type: Outpatient Gender: Female Room: [place] [address] Referring MD: Lakhwinder Rodriguez Exam Type: Colonoscopy [...] or abscess without bleeding CPT copyright 2021 [employer]. All rights reserved. The codes documented in this report are preliminary and upon film laboratory technician reviewmay be revised to meet current compliance requirements. Procedure Date: 09/18/2022 2:13:57 PM [address] [place] [address] Lakhwinder Rodriguez MD GI PROCEDURE ORDERABLES F inal Result from Last 3 Months or Most Recently Relevant to Health Maintenance Insurance MEDICARE PART A & B [employer] SUPPLEMENT MEDICARE PART A & B [employer] SUPPLEMENT MEDICARE PART A & B MEDICARE PART A & B MEDICARE PART A & B [employer] SUPPLEMENT MEDICARE PART A & B MEDICARE PART A & B [employer] SUPPLEMENT MEDICARE PART A & B [employer] MED[employer] SUPPLEMENT MEDICARE PART A & B [employer] MEDEX SUPPLEMENT Care Teams Outbound Supervisor Relationship Specialty Start Date End Date Lakhwinder Rodriguez MD [address] [facility] [address] [place] [address] PCP - General Family Medicine 09/18/22 Additional Source Comments The information contained in this document represents components of the legal health record. It is not the complete legal health record.[facility]
--- OUTSIDE RECORDS SUMMARY | 2025-05-06 08:48 | XMS_ITS | Encounter Summary ---
Author Organization [facility] Address [address] [place] [address] Care Team Providers Care District Adviser Name Role Phone Lakhwinder Rodriguez MD Primary Care Provider Encounter Details Date Type Department Care Team (Late st Contact Info) Description 05/24/[address] [facility] [address] [address] Jaswinder Alvarado MD [address] [place] [address] Social History Tobacco Use Types Packs/Day Years [...] on filedocumented in this encounter Care Teams District Adviser Relationship Specialty Start Date End Date Lakhwinder Rodriguez MD [address] [facility] [address] [place] [address] PCP - General Family Medicine 05/16/23 documented as of this encounter
--- OUTSIDE RECORDS SUMMARY | 2025-05-06 08:48 | XMS_ITS | Clinical Summary ---
Author Organization [facility] Address [address] [place] [address] Care Team Providers Care Heel Seat Trimmer Name Role Phone Lakhwinder Rodriguez MD Primary [...] topic Insurance MEDICARE PART A & B [employer] MEDICARE PART A & B [employer] Care Teams Heel Seat Trimmer Relationship Specialty Start Date End Date Lakhwinder Rodriguez MD [address] [address] PCP - General Family Medicine 05/16/23
--- OUTSIDE RECORDS SUMMARY | 2025-05-06 08:48 | XMS_ITS | Encounter Summary ---
Author Organization [facility] Address [address] [place] [address] Care Team Providers Care Bus Washer Name Role Phone Lakhwinder Rodriguez MD Primary Care Provider [phone] Encounter Details Date Type Department Care Team (Late st Contact Info) Description 08/30/2023 Scanned Document [facility] Department of Physiatry [place] [address] [place] [address] Telma Barron MD [address] [place] [address] Social History Tobacco Use Types Packs/Day Years [...] on filedocumented in this encounter Care Teams Bus Washer Relationship Specialty Start Date End Date Lakhwinder Rodriguez MD 15 [facility] [address] [place] [address] PCP - General Family Medicine 05/16/23 documented as of this encounter
--- OUTSIDE RECORDS SUMMARY | 2025-05-06 08:48 | XMS_ITS | Encounter Summary ---
Author Organization [facility] Address [address] [place] [address] Care Team Providers Care Education Program Manager Name Role Phone Oumou Miguel MD Primary Care Provider + [phone] Lakhwinder Rodriguez MD Primary Care Provider + [phone] Encounter Details Date Type Department Care Team (Late st Contact Info) Description 12/07/2021 Scanned Document [facility] [place] [address] [place] [phone] Oumou Miguel MD [address] [place] [address] Social History Tobacco Use Types Packs/Day Years [...] on filedocumented in this encounter Care Teams Education Program Manager Relationship Specialty Start Date End Date Oumou Miguel MD [address] [place], [place] [id number] PCP - General 05/15/23 Lakhwinder Rodriguez MD [address] [place] [address] PCP - General Family Medicine 05/16/23 documented as of this encounter
--- OUTSIDE RECORDS SUMMARY | 2025-05-06 08:48 | XMS_ITS ---
Author Name [facility] Organization Unknown Results Test Name/Text Value Interpretation Date Range Source ABO GROUP (TYPE) IN BLOOD O 12/11/2024 [facility] RH TYPE IN BLOOD POS 12/11/2024 [facility] ANTIBODY SCREEN NEG 12/11/2024 [facility] KETONES URINE Negative Normal 06/17/2024 - [facility] SPECIFIC GRAVITY, POC 1.025 Normal 06/17/2024 1.003 - 1.035 [facility] INSTRUMENT ID [id number] Normal 06/17/2024 [facility] TEST STRIP LOT # Normal 06/17/2024 [facility] PH, POC 6.5 Normal 06/17/2024 5 - 8 [facility] UROBILINOGEN, POC 0.2 EU/dL Normal 06/17/2024 - [facility] BLOOD, URINE, POC Negative Normal 06/17/2024 - [facility] GLUCOSE URINE, POC Negative Normal 06/17/2024 - [facility] BILI, POC Negative Normal 06/17/2024 - [facility] PRACTICE SPECIALIST ID [id number] Normal 06/17/2024 [facility] PROTEIN, POC Negative Normal 06/17/2024 - [facility] NITRITE, POC Negative Normal 06/17/2024 - [facility] COLOR, POC Yellow Normal 06/17/2024 - [facility] CLARITY, POC Slightly Cloudy Abnormal 06/17/2024 - [facility] TEST STRIP EXP DATE Normal 06/17/2024 [facility] LEUKOCYTE, POC Negative Normal 06/17/2024 - [facility] History of Medication Use Medication Directions Dispensed Refills Start Date End Date Stat us acetaminophen (Tylenol Extra Strength) 500 mg tablet Take 2 tablets (1,000 mg total) by mouth every 6 (six) hours as needed for mild pain (1-3). 12/11/2024 active ibuprofen (ADVIL) 400 mg tablet Take 1 tablet (400 mg total) by mouth every 6 (six) hours as needed for mild pain (1-3) for up to 10 days. 12/11/2024 active oxyCODONE (ROXICODONE) 5 mg immediate release tablet Take 1 tablet (5 mg total) by mouth every 4 (four) hours as needed for moderate pain (4-7) for up to 10 doses. Max Daily Amount: 30 mg 12/11/2024 active buPROPion SR (Wellbutrin SR) 150 mg 12 hr tablet Take 150 mg by mouth in the morning and 150 mg before bedtime. 05/29/2024 active gabapentin (NEURONTIN) 400 mg capsule 300 mg nightly. 05/29/2024 activ e gabapentin (NEURONTIN) 400 mg capsule Take 1,200 mg by mouth nightly. 05/29/2024 active olmesartan medoxomil (OLMESARTAN ORAL) Take 10 mg by mouth once. 05/29/2024 active estradioL (ESTRACE) 0.01 % (0.1 mg/gram) vaginal cream Insert 2 g into the vagina in the morning. 05/26/2024 active fluconazole (DIFLUCAN) 150 mg tablet Take 150 mg by mouth in the morning. PRN. 01/08/2024 active bisoprolol-hydroCHLORO thiazide (ZIAC) 5-6.25 MG per tablet 10/15/2023 active olmesartan (BENICAR) 5 MG tablet Take 1 tablet (5 mg total) by mouth daily. 10/09/2023 active buPROPion (WELLBUTRIN XL) 150 MG 24 hr tablet 04/19/2023 active rosuvastatin (CRESTOR) 5 MG tablet TAKE 1 TABLET BY MOUTH EVERYDAY AT BEDTIME 02/26/2023 active SUMAtriptan (IMITREX) 100 mg tablet Take 1 tablet by mouth See admin instructions. PRN 06/04/2003 active buPROPion XL (WELLBUTRIN XL) 150 mg 24 hr tablet Take 150 mg by mouth in the morning and 150 mg before bedtime. 11/03/1999 active bisoprolol/hydrochloro thiazide (ZIAC ORAL) 11/02/1994 acti ve cetirizine (ZyrTEC) 10 MG tablet Take 10 mg by mouth daily. 10/24/2023 active ALPRAZolam (XANAX) 0.5 mg tablet Take 0.5 mg by mouth daily as needed. active cholecalciferol (Vitamin D-[address]) 25 MCG (1000 UT) tablet Take 1,000 Units by mouth. active gabapentin (NEURONTIN) 400 MG capsule TAKE 3 CAPSULES BY MOUTH EVERY DAY AT BEDTIME active propranoloL (INDERAL) 10 mg tablet Take 10 mg by mouth in the morning and 10 mg before bedtime. PRN. active Allergies Allergen Reaction Severity Comment Documented Date Source Statu s OPIOIDS-MEPERIDINE AND RELATED 06/17/2024 [facility] active NSAIDS OTHER (SEE COMMENTS) Has bleeding disorder 05/16/2023 [facility] active NSAIDS (NON-STEROIDAL ANTI-INFLAMMATORY DRUG) OTHER (SEE COMMENTS)OTHE R (SEE COMMENTS) Has bleeding disorder 05/16/2023 [facility] active BETADINE(WITH SOAP) 02/15/2021 [facility] a ctive NITROFURANTOIN MONOHYD/M-CRYST 02/15/2021 [facility] active PENICILLINS RASHRASH/DERM ATITIS Swelling difficulty breathing,Sob, rash 05/10/2018 [facility] active SULFA (SULFONAMIDE ANTIBIOTICS) Skin peeling 05/10/2018 [facility] active SULFA ANTIBIOTICS OTHER (SEE COMMENTS) Skin peeling 05/10/2018 [facility] active NITROFURANTOIN RASH/DERMATIT IS Swelling,Rash puritis [facility] Problems Problem Status Onset Date Problem Type Date of Resoluti on Source OLEKSANDR (stress urinary incontinence, female) active 2024-06-17 ProblemAct [facility] Von Willebrand disease active 2023-10-24 ProblemAct [facility] Immunizations Vaccine Date Source Lot Number Status Covid-19 mRNA Primary Series Vaccine - Moderna 0.5 mL Full Dose 12/12/2021 [facility] completed Covid-19 mRNA Primary Series Vaccine - Moderna 0.5 mL Full Dose 03/29/2021 [facility] completed Covid-19 mRNA Primary Series Vaccine - Moderna 0.5 mL Full Dose 08/21/2020 [facility] completed Covid-19 mRNA Primary Series Vaccine - Moderna 0.5 mL Full Dose 08/03/2020 [facility] completed Encounters Encounter Type Encounter Reason Primary Diagnosis Location Date Ambulatory Encounter for follow-up examination afte Encounter for follow-up examination after completed treatment for conditions other than malignant neoplasm [facility] 01/22/2025 Ambulatory Painful micturition, unspecified Painful micturition, unspecified [facility] 12/26/2024 Ambulatory Pre-op Visit Pre-op Visit [facility] 12/13/19 Ambulatory Dysuria Dysuria [facility] 12/12/2024 Ambulatory Stress incontinence (female) (male) Stress incontinence (female) (male) [facility] 12/02/2024 Ambulatory [facility] 08/08/2024 Ambulatory Stress incontinence (female) (male) Stress incontinence (female) (male) [facility] 06/17/2024 Ambulatory Von Willebrand disease, unspecified Von Willebrand disease, unspecified [facility] 10/24/2023 Ambulatory Allergy status to penicillin Allergy status to penicillin [facility] 05/24/2023 Ambulatory Allergy status to penicillin Allergy status to penicillin [facility] 05/16/2023 Care Team Organization Name Specialty Phone Email Start Date End [facility] 04/02/2025 [facility] 12/18/2024 [facility] LAKHWINDER RODRIGUEZ [facility] [phone] [facility] 06/24/2023 08/20/2024 [facility] 05/16/2023 025 [facility] 05/16/2023 05/24/2023 [facility] RENEE SOLIZ [facility] 05/16/202305/24 [facility]
== END 2025-05-06 09:04 | disposition home or self-care (01) ==
LOC: HO.HPHYS 08:35
PROVIDERS: Visit Provider Physical Medicine & Rehabilitation
DX: M53.3 Sacrococcygeal disorders, not elsewhere classified (principal); M46.1 Sacroiliitis, not elsewhere classified; M54.16 Radiculopathy, lumbar region; M51.26 Other intervertebral disc displacement, lumbar region
CPT/HCPCS: 99214; G2211

== ENCOUNTER → 2025-05-06 08:34 | Outpatient (BNVA) | payer MEDICARE, BC, SELFPAY | PROVIDERS: Visit Provider Physical Medicine & Rehabilitation | DX: M53.3 Sacrococcygeal disorders, not elsewhere classified (principal); M46.1 Sacroiliitis, not elsewhere classified; M54.16 Radiculopathy, lumbar region; M51.26 Other intervertebral disc displacement, lumbar region | CPT/HCPCS: 99212 ==